=== PATIENT | male | born 1955 | race Caucasian/White ===

== ENCOUNTER 2018-12-12 16:01 | Inpatient (IN) | payer OTHER ==
[2018-12-12 17:55] LABS: ADD MAN DIFF? NO
[2018-12-12 17:56] LABS: BASOPHILS % 0.3 % (0.0-2.0); EOSINOPHILS # 0.2 10^3/ul (0.0-0.5); EOSINOPHILS % 1.9 % (0.0-7.0); HEMATOCRIT 32.1 % (42.0-52.0); HEMOGLOBIN 10.6 g/dl (14.0-18.0); LYMPHOCYTES # 1.2 10^3/ul (0.8-2.9); LYMPHOCYTES % 12.7 % (15.0-51.0); MEAN CORPUSCULAR HEMOGLOBIN 30.5 pg (29.0-33.0); MEAN CORPUSCULAR VOLUME 92.2 fl (82.0-101.0); MEAN PLATELET VOLUME 9.8 fl (7.4-10.4); MONOCYTE # 1.4 10^3/ul (0.3-0.9); MONOCYTES % 15.1 % (0.0-11.0); NEUTROPHIL # 6.4 10^3/ul (1.6-7.5); NEUTROPHILS % 67.6 % (39.0-77.0); PLATELET COUNT 259 10^3/UL (140-415); RED BLOOD COUNT 3.48 10^6/ul (4.70-6.10); RED CELL DISTRIBUTION WIDTH 14.5 % (11.5-14.5)
[2018-12-12 17:56] LABS: WHITE BLOOD COUNT 9.5 10^3/ul (4.8-10.8)
[2018-12-12 18:14] LABS: ALANINE AMINOTRANSFERASE 57 IU/L (13-69); ALBUMIN 4.6 g/dl (3.3-4.9); ALBUMIN/GLOBULIN RATIO 1.15; ALKALINE PHOSPHATASE 127 IU/L (42-121); ANION GAP 17 (5-13); ASPARTATE AMINO TRANSFERASE 37 IU/L (15-46); BILIRUBIN,INDIRECT 0.2 mg/dl (0-1.1); BILIRUBIN,TOTAL 0.2 mg/dl (0.2-1.3); BLOOD UREA NITROGEN 58 mg/dl (7-20); CALCIUM 9.8 mg/dl (8.4-10.2); CARBON DIOXIDE 22 mmol/L (21-31); CHLORIDE 99 mmol/L (97-110); CREATININE 7.48 mg/dl (0.61-1.24); Estimated GFR 7 mL/min (>60); GLUCOSE 229 mg/dl (70-220); POTASSIUM 4.9 mmol/L (3.5-5.1); SODIUM 138 mmol/L (135-144); TOTAL PROTEIN 8.6 g/dl (6.1-8.1)
[2018-12-12] MEDS: PIPER-TAZO 3.375 GM IV (PMX) 100 ML IVPB (18:14)
[2018-12-12 18:16] LABS: INR 0.94; PROTIME 12.7 Sec (11.9-14.9)
[2018-12-12 18:17] LABS: PARTIAL THROMBOPLASTIN TIME 30.9 Sec (23.0-35.0)
[2018-12-12] MEDS: VANCOMYCIN 1 GM (PMX) 250 ML IVPB (19:34)
[2018-12-12] MEDS ORDERED: ACETAMINOPHEN 325 MG TAB PO (20:00)
[2018-12-12] MEDS ORDERED: ONDANSETRON 4 MG INJ IV (20:00)
[2018-12-12 20:24] LABS: ADD UMIC YES; UR AMORPHOUS CRYSTAL MODERATE /HPF (NONE SEEN); UR ASCORBIC ACID NEGATIVE (NEGATIVE); UR BACTERIA FEW /HPF (NONE SEEN); UR BILIRUBIN (Dip) NEGATIVE (NEGATIVE); UR BLOOD (Dip) 1+ mg/dL (NEGATIVE); UR CLARITY CLOUDY (CLEAR); UR COLOR YELLOW (YELLOW); UR GLUCOSE (Dip) 1+ mg/dL (NEGATIVE); UR KETONES (Dip) NEGATIVE (NEGATIVE); UR LEUKOCYTE ESTERASE (Dip) NEGATIVE Leu/ul (NEGATIVE); UR NITRITE (Dip) NEGATIVE (NEGATIVE); UR RBC 15 /HPF (0-5); UR SPECIFIC GRAVITY (Dip) 1.016 (1.003-1.030); UR SQUAMOUS EPITHELIAL CELL FEW /HPF (FEW); UR TOTAL PROTEIN (Dip) 2+ mg/dl (NEGATIVE); UR UROBILINOGEN (Dip) NEGATIVE (NEGATIVE); UR WBC 6 /HPF (0-5)
[2018-12-13] MEDS: ZOLPIDEM 5 MG TAB PO (01:17)
[2018-12-13] MEDS: CEFTRIAXONE 1 GM/50 ML (PMX) 50 ML IVPB (01:17)
[2018-12-13] MEDS: ACCU-CHEK XX (01:18)
[2018-12-13 05:36] LABS: ADD MAN DIFF? NO
[2018-12-13 05:40] LABS: WHITE BLOOD COUNT 8.3 10^3/ul (4.8-10.8)
[2018-12-13 05:40] LABS: ABNORMAL IP MESSAGE 1; BASOPHILS % 0.2 % (0.0-2.0); EOSINOPHILS # 0.1 10^3/ul (0.0-0.5); EOSINOPHILS % 1.3 % (0.0-7.0); HEMATOCRIT 29.2 % (42.0-52.0); HEMOGLOBIN 9.7 g/dl (14.0-18.0); LYMPHOCYTES # 0.3 10^3/ul (0.8-2.9); LYMPHOCYTES % 3.6 % (15.0-51.0); MEAN CORPUSCULAR HGB CONC 33.2 g/dl (32.0-37.0); MEAN CORPUSCULAR VOLUME 93.3 fl (82.0-101.0); MEAN PLATELET VOLUME 9.4 fl (7.4-10.4); MONOCYTE # 0.7 10^3/ul (0.3-0.9); NEUTROPHIL # 6.9 10^3/ul (1.6-7.5); NEUTROPHILS % 83.7 % (39.0-77.0); PLATELET COUNT 226 10^3/UL (140-415); POSITIVE DIFF @See below; RED BLOOD COUNT 3.13 10^6/ul (4.70-6.10); RED CELL DISTRIBUTION WIDTH 14.4 % (11.5-14.5)
[2018-12-13 06:11] LABS: ANION GAP 16 (5-13); BLOOD UREA NITROGEN 67 mg/dl (7-20); CARBON DIOXIDE 22 mmol/L (21-31); CHLORIDE 101 mmol/L (97-110); Estimated GFR 7 mL/min (>60); GLUCOSE 281 mg/dl (70-220); POTASSIUM 5.4 mmol/L (3.5-5.1); SODIUM 139 mmol/L (135-144)
[2018-12-13] MEDS: INSULIN ASPART [NOVOLOG] 3 ML PEN SC ×5 (08:05→20:31)
[2018-12-13] MEDS: INSULIN GLARGINE [LANTus] (100 UNITS/ML) SYG SC ×2 (08:05→20:30)
[2018-12-13] MEDS: MINOXIDIL 10 MG TAB PO (08:48)
[2018-12-13] MEDS: FUROSEMIDE 40 MG TAB PO (08:49)
[2018-12-13] MEDS: MULTIVIT/CA CARB/B CMPLX/FA TAB PO (08:49)
[2018-12-13] MEDS: AMLODIPINE 5 MG TAB PO (08:49)
[2018-12-13] MEDS: DOCUSATE SODIUM 100 MG CAP PO (08:50)
[2018-12-13] MEDS: TIMOLOL 0.5% 5 ML OPH BOTH EYES ×2 (08:50→20:28)
[2018-12-13] MEDS: ENOXAPARIN 40 MG/0.4 ML SYG SC (08:53)
[2018-12-13] MEDS ORDERED: SPECIAL NON-STANDARD MEDICATION BOTH EYES (09:00)
[2018-12-13 10:40] LABS: HEPATITIS B SURFACE ANTIGEN NEGATIVE (NEGATIVE)
[2018-12-13] MEDS ORDERED: GLUCOSE GEL 15 GRAM TUBE BUCCAL (11:30)
[2018-12-13] MEDS ORDERED: DEXTROSE 50% 50 ML SYRINGE IV ×2 (11:30)
[2018-12-13] MEDS ORDERED: GLUCOSE GEL 15 GRAM TUBE PO ×2 (11:30)
[2018-12-13] MEDS ORDERED: GLUCAGON 1 MG INJ IM (11:30)
[2018-12-13] MEDS ORDERED: VANCOMYCIN IV PER PHARMACY XX (15:30)
[2018-12-13] MEDS: PANTOPRAZOLE (EC) 40 MG TAB PO (16:34)
[2018-12-13] MEDS: VANCOMYCIN 1 GM 250 ML IVPB (16:34)
[2018-12-13] MEDS: COLLAGENASE 5 GM (UD JAR) TOP (17:30)
[2018-12-13] MEDS: LINAGLIPTIN 5 MG TABLET PO (17:34)
[2018-12-13] MEDS: ATORVASTATIN 20 MG TAB PO (20:28)
[2018-12-14] MEDS: CEFTRIAXONE 1 GM/50 ML (PMX) 50 ML IVPB (02:00)
[2018-12-14] MEDS: INSULIN ASPART [NOVOLOG] 3 ML PEN SC ×6 (02:13→17:36)
[2018-12-14] MEDS: PANTOPRAZOLE (EC) 40 MG TAB PO (06:00)
[2018-12-14 06:21] LABS: ADD MAN DIFF? NO
[2018-12-14 06:30] LABS: BASOPHILS % 0.3 % (0.0-2.0); EOSINOPHILS # 0.3 10^3/ul (0.0-0.5); EOSINOPHILS % 3.8 % (0.0-7.0); HEMATOCRIT 29.7 % (42.0-52.0); HEMOGLOBIN 9.7 g/dl (14.0-18.0); LYMPHOCYTES # 0.8 10^3/ul (0.8-2.9); LYMPHOCYTES % 12.2 % (15.0-51.0); MEAN CORPUSCULAR HGB CONC 32.7 g/dl (32.0-37.0); MEAN PLATELET VOLUME 9.6 fl (7.4-10.4); MONOCYTE # 0.8 10^3/ul (0.3-0.9); MONOCYTES % 12.6 % (0.0-11.0); NEUTROPHIL # 4.5 10^3/ul (1.6-7.5); NEUTROPHILS % 68.2 % (39.0-77.0); PLATELET COUNT 218 10^3/UL (140-415); RED BLOOD COUNT 3.23 10^6/ul (4.70-6.10); RED CELL DISTRIBUTION WIDTH 14.3 % (11.5-14.5)
[2018-12-14 06:30] LABS: WHITE BLOOD COUNT 6.7 10^3/ul (4.8-10.8)
[2018-12-14 07:01] LABS: VANCOMYCIN,RANDOM 17.3 ug/ml
[2018-12-14 07:13] LABS: ANION GAP 14 (5-13); BLOOD UREA NITROGEN 44 mg/dl (7-20); CARBON DIOXIDE 26 mmol/L (21-31); CHLORIDE 100 mmol/L (97-110); CREATININE 5.77 mg/dl (0.61-1.24); Estimated GFR 10 mL/min (>60); GLUCOSE 204 mg/dl (70-220); PHOSPHORUS 4.8 mg/dl (2.5-4.9); POTASSIUM 4.6 mmol/L (3.5-5.1); SODIUM 140 mmol/L (135-144); URIC ACID 4.9 mg/dl (3.1-7.9)
[2018-12-14] MEDS ORDERED: PROPOFOL 20 ML (07:38)
[2018-12-14] MEDS ORDERED: FENTAnyl 50 MCG/ML VIAL (07:38)
[2018-12-14] MEDS ORDERED: LIDOCAINE 2% (SDV) 5 ML INJ (07:38)
[2018-12-14] MEDS ORDERED: MIDAZOLAM 1 MG/ML 2 ML INJ (07:38)
[2018-12-14] MEDS ORDERED: BUPIVACAINE 0.5% (SDV) 30 ML INJ (07:47)
[2018-12-14 07:51] LABS: IRON 34 ug/dl (35-150)
[2018-12-14] MEDS ORDERED: CEFAZOLIN 1 GM INJ (07:52)
[2018-12-14] MEDS ORDERED: FAMOTIDINE 20 MG INJ (07:54)
[2018-12-14] MEDS ORDERED: ONDANSETRON 4 MG INJ (07:54)
[2018-12-14] MEDS: POLYMYXIN/BACITRACIN 1L IRRIG (07:55)
[2018-12-14 08:00] LABS: % IRON SATURATION 20 % SAT (22-52); TOTAL IRON BINDING CAPACITY 172 ug/dl (241-421)
[2018-12-14] MEDS ORDERED: FENTAnyl 50 MCG/ML VIAL IV (08:00)
[2018-12-14] MEDS ORDERED: LABETALOL HCL 20MG INJ IV (08:00)
[2018-12-14] MEDS ORDERED: hydrALAzine 20 MG INJ IV (08:00)
[2018-12-14] MEDS ORDERED: PROCHLORPERAZINE 10 MG INJ IV (08:00)
[2018-12-14] MEDS ORDERED: MEPERIDINE 25 MG INJ IV (08:00)
[2018-12-14] MEDS ORDERED: ONDANSETRON 4 MG INJ IV (08:00)
[2018-12-14] MEDS ORDERED: HYDROmorphONE 1 MG/5 ML IV SYRINGE IV ×3 (08:00)
[2018-12-14] MEDS ORDERED: DIPHENHYDRAMINE 50 MG INJ IV (08:00)
[2018-12-14 08:39] LABS: HEMOGLOBIN A1C 6.7 % (0-5.9)
[2018-12-14] MEDS: POVIDONE IODINE 10% 28.4 GM OINT TOP (09:00)
[2018-12-14] MEDS: ENOXAPARIN 30 MG/0.3 ML SYG SC (09:00)
[2018-12-14] MEDS: COLLAGENASE 5 GM (UD JAR) TOP (09:00)
[2018-12-14] MEDS: MULTIVIT/CA CARB/B CMPLX/FA TAB PO (12:52)
[2018-12-14] MEDS: LINAGLIPTIN 5 MG TABLET PO (12:53)
[2018-12-14] MEDS: MINOXIDIL 10 MG TAB PO (12:53)
[2018-12-14] MEDS: TIMOLOL 0.5% 5 ML OPH BOTH EYES ×2 (12:53→20:44)
[2018-12-14] MEDS: DOCUSATE SODIUM 100 MG CAP PO (12:55)
[2018-12-14] MEDS: AMLODIPINE 5 MG TAB PO (12:56)
[2018-12-14] MEDS: FUROSEMIDE 40 MG TAB PO (12:56)
[2018-12-14] MEDS ORDERED: HYDROCODONE/APAP (5/325) TAB PO (15:00)
[2018-12-14] MEDS: Insulin NOVOLOG SS MODERATE Algorithm (SS with meals and bedtime) SC ×2 (17:35→20:47)
[2018-12-14] MEDS ORDERED: INSULIN ASPART [NOVOLOG] 3 ML PEN SC (17:35)
[2018-12-14] MEDS: morphine 2 MG INJ IV (17:55)
[2018-12-14] MEDS: VANCOMYCIN 1 GM 250 ML IVPB (17:59)
[2018-12-14] MEDS: BRIMONIDINE 0.2% 5 ML BTL BOTH EYES (20:43)
[2018-12-14] MEDS: ATORVASTATIN 20 MG TAB PO (20:44)
[2018-12-14] MEDS: HEPARIN 5,000 UNIT/1 ML VIAL SC (20:47)
[2018-12-14] MEDS: INSULIN GLARGINE [LANTus] (100 UNITS/ML) SYG SC (20:48)
[2018-12-15] MEDS: CEFTRIAXONE 1 GM/50 ML (PMX) 50 ML IVPB (00:38)
[2018-12-15 05:23] LABS: ADD MAN DIFF? NO
[2018-12-15 05:39] LABS: BASOPHILS % 0.4 % (0.0-2.0); EOSINOPHILS # 0.3 10^3/ul (0.0-0.5); HEMATOCRIT 27.5 % (42.0-52.0); HEMOGLOBIN 9.1 g/dl (14.0-18.0); LYMPHOCYTES # 1.4 10^3/ul (0.8-2.9); LYMPHOCYTES % 17.2 % (15.0-51.0); MEAN CORPUSCULAR HEMOGLOBIN 30.5 pg (29.0-33.0); MEAN CORPUSCULAR HGB CONC 33.1 g/dl (32.0-37.0); MEAN CORPUSCULAR VOLUME 92.3 fl (82.0-101.0); MEAN PLATELET VOLUME 9.7 fl (7.4-10.4); MONOCYTE # 1.2 10^3/ul (0.3-0.9); MONOCYTES % 14.6 % (0.0-11.0); NEUTROPHILS % 61.2 % (39.0-77.0); PLATELET COUNT 217 10^3/UL (140-415); RED BLOOD COUNT 2.98 10^6/ul (4.70-6.10); RED CELL DISTRIBUTION WIDTH 14.1 % (11.5-14.5)
[2018-12-15 05:39] LABS: WHITE BLOOD COUNT 8.2 10^3/ul (4.8-10.8)
[2018-12-15] MEDS: PANTOPRAZOLE (EC) 40 MG TAB PO (06:10)
[2018-12-15 06:34] LABS: ANION GAP 14 (5-13); BLOOD UREA NITROGEN 66 mg/dl (7-20); CALCIUM 8.3 mg/dl (8.4-10.2); CARBON DIOXIDE 23 mmol/L (21-31); CHLORIDE 99 mmol/L (97-110); CREATININE 7.94 mg/dl (0.61-1.24); Estimated GFR 7 mL/min (>60); GLUCOSE 190 mg/dl (70-220); POTASSIUM 4.5 mmol/L (3.5-5.1); SODIUM 136 mmol/L (135-144)
[2018-12-15] MEDS: INSULIN ASPART [NOVOLOG] 3 ML PEN SC ×3 (08:06→17:23)
[2018-12-15] MEDS: Insulin NOVOLOG SS MODERATE Algorithm (SS with meals and bedtime) SC ×4 (08:08→20:41)
[2018-12-15] MEDS: INSULIN GLARGINE [LANTus] (100 UNITS/ML) SYG SC ×2 (08:10→20:43)
[2018-12-15] MEDS: LINAGLIPTIN 5 MG TABLET PO (08:11)
[2018-12-15] MEDS: HEPARIN 5,000 UNIT/1 ML VIAL SC ×2 (08:11→20:44)
[2018-12-15] MEDS: MULTIVIT/CA CARB/B CMPLX/FA TAB PO (08:11)
[2018-12-15] MEDS: BRIMONIDINE 0.2% 5 ML BTL BOTH EYES ×2 (08:12→20:40)
[2018-12-15] MEDS: TIMOLOL 0.5% 5 ML OPH BOTH EYES ×2 (08:12→20:40)
[2018-12-15] MEDS: DOCUSATE SODIUM 100 MG CAP PO (08:12)
[2018-12-15] MEDS: MINOXIDIL 10 MG TAB PO (08:13)
[2018-12-15] MEDS: AMLODIPINE 5 MG TAB PO (08:13)
[2018-12-15] MEDS: FUROSEMIDE 40 MG TAB PO (08:13)
[2018-12-15] MEDS: COLLAGENASE 5 GM (UD JAR) TOP (08:14)
[2018-12-15] MEDS: POVIDONE IODINE 10% 28.4 GM OINT TOP (08:14)
[2018-12-15] MEDS: SOD FERRIC GLUC COMPLX 125 MG in SOD CHLORIDE 0.9% 100 ML IVPB (13:35)
[2018-12-15] MEDS: ATORVASTATIN 20 MG TAB PO (20:40)
[2018-12-15] MEDS: CEFAZOLIN 1 GM/50 ML (PMX) 50 ML IVPB (21:19)
[2018-12-16] MEDS: PANTOPRAZOLE (EC) 40 MG TAB PO (06:07)
[2018-12-16] MEDS: Insulin NOVOLOG SS MODERATE Algorithm (SS with meals and bedtime) SC ×4 (08:00→20:57)
[2018-12-16] MEDS: INSULIN ASPART [NOVOLOG] 3 ML PEN SC ×3 (08:01→17:19)
[2018-12-16] MEDS: HEPARIN 5,000 UNIT/1 ML VIAL SC ×2 (08:02→20:55)
[2018-12-16] MEDS: TIMOLOL 0.5% 5 ML OPH BOTH EYES ×2 (08:02→20:54)
[2018-12-16] MEDS: DOCUSATE SODIUM 100 MG CAP PO (08:03)
[2018-12-16] MEDS: MULTIVIT/CA CARB/B CMPLX/FA TAB PO (08:03)
[2018-12-16] MEDS: LINAGLIPTIN 5 MG TABLET PO (08:03)
[2018-12-16] MEDS: BRIMONIDINE 0.2% 5 ML BTL BOTH EYES ×2 (08:03→20:54)
[2018-12-16] MEDS: INSULIN GLARGINE [LANTus] (100 UNITS/ML) SYG SC ×2 (08:04→20:56)
[2018-12-16] MEDS: POVIDONE IODINE 10% 28.4 GM OINT TOP (08:05)
[2018-12-16] MEDS: COLLAGENASE 5 GM (UD JAR) TOP (08:06)
[2018-12-16] MEDS: MINOXIDIL 10 MG TAB PO (08:38)
[2018-12-16] MEDS: AMLODIPINE 5 MG TAB PO (08:38)
[2018-12-16] MEDS: FUROSEMIDE 40 MG TAB PO (08:38)
[2018-12-16] MEDS: SOD FERRIC GLUC COMPLX 125 MG in SOD CHLORIDE 0.9% 100 ML IVPB (12:12)
[2018-12-16] MEDS: EPOETIN ALFA-EPBX (ESRD) 4,000 UNIT/ML VIAL SC (16:41)
[2018-12-16] MEDS: ATORVASTATIN 20 MG TAB PO (20:54)
[2018-12-17] MEDS: CEFAZOLIN 1 GM/50 ML (PMX) 50 ML IVPB (01:42)
[2018-12-17] MEDS: ZOLPIDEM 5 MG TAB PO (01:42)
[2018-12-17] MEDS: ACETAMINOPHEN 325 MG TAB PO (03:05)
[2018-12-17] MEDS: PANTOPRAZOLE (EC) 40 MG TAB PO (05:30)
[2018-12-17 07:22] LABS: ADD MAN DIFF? NO
[2018-12-17 07:38] LABS: WHITE BLOOD COUNT 7.7 10^3/ul (4.8-10.8)
[2018-12-17 07:38] LABS: BASOPHILS % 0.4 % (0.0-2.0); EOSINOPHILS # 0.2 10^3/ul (0.0-0.5); HEMOGLOBIN 10.1 g/dl (14.0-18.0); LYMPHOCYTES # 1.5 10^3/ul (0.8-2.9); LYMPHOCYTES % 19.4 % (15.0-51.0); MEAN CORPUSCULAR HEMOGLOBIN 30.1 pg (29.0-33.0); MEAN CORPUSCULAR HGB CONC 33.7 g/dl (32.0-37.0); MEAN CORPUSCULAR VOLUME 89.3 fl (82.0-101.0); MEAN PLATELET VOLUME 10.6 fl (7.4-10.4); MONOCYTES % 13.2 % (0.0-11.0); NEUTROPHIL # 4.7 10^3/ul (1.6-7.5); NEUTROPHILS % 60.8 % (39.0-77.0); PLATELET COUNT 141 10^3/UL (140-415); RED BLOOD COUNT 3.36 10^6/ul (4.70-6.10); RED CELL DISTRIBUTION WIDTH 13.6 % (11.5-14.5)
[2018-12-17 07:55] LABS: ALANINE AMINOTRANSFERASE 22 IU/L (13-69); ALBUMIN 3.8 g/dl (3.3-4.9); ALBUMIN/GLOBULIN RATIO 0.92; ALKALINE PHOSPHATASE 94 IU/L (42-121); ANION GAP 13 (5-13); ASPARTATE AMINO TRANSFERASE 40 IU/L (15-46); BILIRUBIN,INDIRECT 0.2 mg/dl (0-1.1); BILIRUBIN,TOTAL 0.2 mg/dl (0.2-1.3); BLOOD UREA NITROGEN 39 mg/dl (7-20); CALCIUM 8.7 mg/dl (8.4-10.2); CARBON DIOXIDE 25 mmol/L (21-31); CHLORIDE 102 mmol/L (97-110); CREATININE 5.83 mg/dl (0.61-1.24); Estimated GFR 10 mL/min (>60); GLUCOSE 129 mg/dl (70-220); POTASSIUM 3.6 mmol/L (3.5-5.1); SODIUM 140 mmol/L (135-144); TOTAL PROTEIN 7.9 g/dl (6.1-8.1)
[2018-12-17] MEDS: Insulin NOVOLOG SS MODERATE Algorithm (SS with meals and bedtime) SC ×3 (08:00→17:15)
[2018-12-17] MEDS: INSULIN ASPART [NOVOLOG] 3 ML PEN SC ×3 (08:08→17:14)
[2018-12-17] MEDS: HEPARIN 5,000 UNIT/1 ML VIAL SC (08:09)
[2018-12-17] MEDS: INSULIN GLARGINE [LANTus] (100 UNITS/ML) SYG SC (08:09)
[2018-12-17] MEDS: MULTIVIT/CA CARB/B CMPLX/FA TAB PO (08:10)
[2018-12-17] MEDS: BRIMONIDINE 0.2% 5 ML BTL BOTH EYES (08:10)
[2018-12-17] MEDS: LINAGLIPTIN 5 MG TABLET PO (08:10)
[2018-12-17] MEDS: TIMOLOL 0.5% 5 ML OPH BOTH EYES (08:10)
[2018-12-17] MEDS: AMLODIPINE 5 MG TAB PO (08:11)
[2018-12-17] MEDS: FUROSEMIDE 40 MG TAB PO (08:11)
[2018-12-17] MEDS: DOCUSATE SODIUM 100 MG CAP PO (08:14)
[2018-12-17] MEDS: COLLAGENASE 5 GM (UD JAR) TOP (08:18)
[2018-12-17] MEDS: POVIDONE IODINE 10% 28.4 GM OINT TOP (08:18)
[2018-12-17 08:47] LABS: MAGNESIUM 2.1 mg/dl (1.7-2.5)
[2018-12-17] MEDS: DAKINS 0.0125%(1/40) 473 ML SOLUTION TP (12:11)
== END 2018-12-17 19:00 | disposition home health service (06) | DRG 264 ==
LOC: E/R 16:01 → PP2 19:35
PROC: 0Y9M0ZX Drainage of Right Foot, Open Approach, Diagnostic (ICD-10-PCS; principal; 2018-12-14 07:40)
PROC: 0JBQ0ZZ Excision of Right Foot Subcutaneous Tissue and Fascia, Open Approach (ICD-10-PCS; 2018-12-14 07:40)
PROC: 5A1D70Z Performance of Urinary Filtration, Intermittent, Less than 6 Hours Per Day (ICD-10-PCS; 2018-12-14 07:40)
DX: E11.52 Type 2 diabetes mellitus with diabetic peripheral angiopathy with gangrene (principal); N18.6 End stage renal disease; L03.115 Cellulitis of right lower limb; I12.0 Hypertensive chronic kidney disease with stage 5 chronic kidney disease or end stage renal disease; N39.0 Urinary tract infection, site not specified; E11.8 Type 2 diabetes mellitus with unspecified complications; I73.9 Peripheral vascular disease, unspecified; E11.40 Type 2 diabetes mellitus with diabetic neuropathy, unspecified; E11.22 Type 2 diabetes mellitus with diabetic chronic kidney disease; E11.621 Type 2 diabetes mellitus with foot ulcer; E87.5 Hyperkalemia; E66.9 Obesity, unspecified; Z68.34 Body mass index [BMI] 34.0-34.9, adult; Z99.2 Dependence on renal dialysis; D63.8 Anemia in other chronic diseases classified elsewhere; E78.5 Hyperlipidemia, unspecified
CPT/HCPCS: 73630; 73718; 80048; 80053; 80202; 81001; 82652; 82962; 83036; 83540; 83735; 84100; 84560; 85025; 85610; 85730; 87040-91; 87070; 87086; 87340; 90935; 93005; 93926; 96374; 96375; 99285-25